=== PATIENT | male | born 1955 | race Caucasian/White ===

== ENCOUNTER 2023-09-18 06:04 | Emergency (ER) | payer MEDICARE, OTHER ==
[2023-09-18] MEDS ORDERED: levETIRAcetam IV 500 MG/5 ML VIAL IVP STA (06:13)
[2023-09-18] MEDS ORDERED: SODIUM CHLORIDE 0.9% 1,000 ML IV STA (06:13)
[2023-09-18] MEDS ORDERED: THIAMINE 100 MG/ML 2 ML VIAL IM STA (06:14)
[2023-09-18] MEDS ORDERED: LORazepam 2 MG/ML INJ IV PRN ×4 (06:14)
[2023-09-18] MEDS ORDERED: LORazepam 1 MG TAB PO PRN (06:14)
[2023-09-18 06:19] VITALS: RESP 18
--- NOTE | 2023-09-18 06:29 | ED ---
Seizure HPI - General Chief Complaint: Seizure Stated Complaint: seizure Time Seen by Provider: 09/18/23 06:06 Source: patient, EMS, RN notes reviewed Mode of arrival: EMS Limitations: no limitations - History of Present Illness Initial Comments: This is a 67-year-old male who presents to the emergency department for a seizure. Patient checked into [facility] yesterday for alcohol abuse. States that his most recent drink was a couple of days ago. States that he typically drinks a pint of liquor daily. Per EMS, [facility] staff heard a noise and snoring in his room. Staff went to check on him and found him having tonic- clonic seizure activity. They are unsure how long the seizure itself lasted, however the time involving the tonic-clonic activity and postictal period lasted approximately 15 minutes. When EMS arrived, he was alert and oriented x4. He does have a history of alcohol withdrawal seizures, most recently 1-2 years ago. Not currently on any antiepileptic medication. States that he feels mildly confused at this time, but otherwise denies any complaints. MD Complaint: seizure Description of Episode: loss of consciousness, tonic-clonic movement - Related Data Allergies Allergy/AdvReac Type Severity Reaction Status Date / Time No Known Allergies Allergy Verified 09/18/23 06:22 Review of Systems ROS Statement: Those systems with pertinent positive or pertinent negative responses have been documented in the HPI. ROS Other: All systems not noted in ROS Statement are negative. Past Medical History Past Medical History: Hypertension Additional Past Medical History / Comment(s): Withdrawl seizures History of Any Multi-Drug Resistant Organisms: None Reported Past Surgical History: No Surgical Hx Reported Past Psychological History: Depression Smoking Status: Never smoker Past Alcohol Use History: Abuse Past Drug Use History: None Reported General Exam Limitations: no limitations General appearance: alert, in no apparent distress Head exam: Present: atraumatic, normocephalic, normal inspection Eye exam: Present: normal appearance, PERRL, EOMI. Absent: scleral icterus, conjunctival injection, periorbital swelling Respiratory exam: Present: normal lung sounds bilaterally. Absent: respiratory distress, wheezes, rales, rhonchi, stridor Cardiovascular Exam: Present: regular rate, normal rhythm, normal heart sounds. Absent: systolic murmur, diastolic murmur, rubs, gallop, clicks Neurological exam: Present: alert, oriented X3, CN II-XII intact Psychiatric exam: Present: normal affect, normal mood Skin exam: Present: warm, dry, intact, normal color. Absent: rash Course Vital Signs 09/18/23 09/18/23 06:06 09:14 Temperature 98.0 F 98.6 F Pulse Rate 89 86 Respiratory 18 18 Rate Blood Pressure 141/87 118/83 O2 Sat by Pulse 94 L 95 Oximetry Medical Decision Making - Medical Decision Making This is a 67-year-old male who presents to the emergency department for a seizure. Was pt. sent in by a medical professional or institution? @ -[facility] Did you speak to anyone other than the patient for history? @ -EMS provided the information about how long the seizure lasted and that he was alert and oriented when they arrived. Did you review nursing and triage notes? @ -Yes, and I agree, it is accurate with regards to the patient's symptoms. Were old charts reviewed? @ -No Differential Diagnosis? @ -Differential Seizure: Recurrent seizure disorder, febrile seizure, alcohol withdrawal, stimulants, meningitis, encephalitis, intercranial hemorrhage, intracranial tumor, stroke, eclampsia, thyrotoxicosis, hypocalcemia, hyponatremia, hypernatremia, hypomagnesemia, psychogenic, this is not meant to be an all-inclusive list. EKG interpreted by me (3pts min.)? @ -EKG interpreted by me demonstrating the following: Sinus rhythm. Ventricular rate 81 bpm, HI interval 206 ms, QRS duration 123 ms, QTC 429 ms. X-rays interpreted by me (1pt min.)? @ -Not obtained CT interpreted by me (1pt min.)? @ -Not obtained U/S interpreted by me (1pt. min.)? @ -Not obtained What testing was considered but not performed? (CT, X-rays, U/S, labs)? Why? @ -None What meds were considered but not given? Why? @ -None Did you discuss the management of the patient with other professionals? @ -No Did you reconcile home meds? @ -No Was smoking cessation discussed for >3mins.? @ -No Was critical care preformed (if so, how long)? @ -No Were there social determinants of health that impacted care today? How? (Homelessness, low income, unemployed, alcoholism, drug addiction, transport ation, low edu. Level, literacy, decrease access to med. care, nursing home, rehab)? @ -Alcoholism, causing the withdrawal seizures and leading to his visit today. Was there de-escalation of care discussed even if they declined? (Discuss DNR or withdrawal of care, Hospice)? @ -No What co-morbidities impacted this encounter? (DM, HTN, Smoking, COPD, CAD, Cancer, CVA, Hep., AIDS, mental health diagnosis, sleep apnea, morbid obesity)? @ -Alcoholism Was patient admitted / discharged? @ -Discharged. On arrival, patient was no longer postictal. He felt slightly confused, however this resolved quickly and he was alert and oriented x4 during the duration of his visit. Lab work obtained demonstrating mild hypomagnesemia with a magnesium of 1.3 and was otherwise found to be unremarkable. 400 mg Magnesium oxide administered. Alcohol level negative. Seizure precautions were initiated. Patient given IV fluids and 1g of Keppra. His CIWA was 0 during the entirety of the visit. He was tolerating oral intake and exhibiting no signs of distress. Nursing staff discussed the case with [facility], who was agreeable to taking the patient back. Patient discharged back to [facility] in stable condition. Undiagnosed new problem with uncertain prognosis? @ -None Drug Therapy requiring intensive monitoring for toxicity (Heparin, Nitro, Insulin, Cardizem)? @ -None Were any procedures done? @ -None Diagnosis/symptom? @ -Alcohol withdrawal seizure, hypomagnesemia Acute, or Chronic, or Acute on Chronic? @ -Acute Uncomplicated (without systemic symptoms) or Complicated (systemic symptoms)? @ -Uncomplicated Side effects of treatment? @ -None Exacerbation, Progression, or Severe Exacerbation] @ -Not applicable Poses a threat to life or bodily function? @ -Not at this time Return precautions reviewed in depth, the patient is instructed to return to the emergency department with any new, worsening, or concerning symptoms. Patient verbalized understanding. This case was discussed in detail with the attending ED physician, Dr. Dugan. Presentation, findings, and treatment plan discussed in detail as well. - Lab Data Result diagrams: 09/18/23 06:18 09/18/23 06:18 Lab Results 09/18/23 09/18/23 09/18/23 Range/Units 06:18 06:18 06:18 WBC 3.9 (3.8-10.6) k/uL RBC 4.46 (4.30-5.90) m/uL Hgb 15.8 (13.0-17.5) gm/dL Hct 46.1 (39.0-53.0) % MCV 103.4 H (80.0-100.0) fL MCH 35.4 H (25.0-35.0) pg MCHC 34.2 (31.0-37.0) g/dL RDW 14.6 (11.5-15.5) % Plt Count 128 L (150-450) k/uL MPV 8.1 Neutrophils % 49 % Lymphocytes % 42 % Monocytes % 6 % Eosinophils % 1 % Basophils % 0 % Neutrophils # 1.9 (1.3-7.7) k/uL Lymphocytes # 1.6 (1.0-4.8) k/uL Monocytes # 0.2 (0-1.0) k/uL Eosinophils # 0.1 (0-0.7) k/uL Basophils # 0.0 (0-0.2) k/uL Macrocytosis Slight Sodium 139 (137-145) mmol/L Potassium 3.7 (3.5-5.1) mmol/L Chloride 101 (98-107) mmol/L Carbon Dioxide 25 (22-30) mmol/L Anion Gap 13 mmol/L BUN 6 L (9-20) mg/dL Creatinine 0.57 L (0.66-1.25) mg/dL Est GFR (CKD-EPI)AfAm >90 (>60 ml/min/1.73 sqM) Est GFR (CKD-EPI)NonAf >90 (>60 ml/min/1.73 sqM) Glucose 155 H (74-99) mg/dL Calcium 8.6 (8.4-10.2) mg/dL Magnesium 1.3 L (1.6-2.3) mg/dL Total Bilirubin 1.5 H (0.2-1.3) mg/dL AST 98 H (17-59) U/L ALT 36 (4-49) U/L Alkaline Phosphatase 122 (38-126) U/L Total Protein 7.2 (6.3-8.2) g/dL Albumin 3.7 (3.5-5.0) g/dL Urine Color Yellow Urine Appearance Clear (Clear) Urine pH 8.0 (5.0-8.0) Ur Specific Donalds 1.022 (1.001-1.035) Urine Protein 1+ H (Negative) Urine Glucose (UA) Negative (Negative) Urine Ketones Trace H (Negative) Urine Blood Negative (Negative) Urine Nitrite Negative (Negative) Urine Bilirubin Negative (Negative) Urine Urobilinogen 2.0 (<2.0) mg/dL Ur Leukocyte Esterase Negative (Negative) Urine RBC <1 (0-5) /hpf Urine WBC <1 (0-5) /hpf Ur Squamous Epith Cells <1 (0-4) /hpf Urine Mucus Occasional H (None) /hpf Urine Opiates Screen Not Detected (NotDetected) Ur Oxycodone Screen Not Detected (NotDetected) Urine Methadone Screen Not Detected (NotDetected) Ur Barbiturates Screen Not Detected (NotDetected) U Tricyclic Antidepress Not Detected (NotDetected) Ur Phencyclidine Scrn Not Detected (NotDetected) Ur Amphetamines Screen Not Detected (NotDetected) U Methamphetamines Scrn Not Detected (NotDetected) U Benzodiazepines Scrn Not Detected (NotDetected) Urine Cocaine Screen Not Detected (NotDetected) U Marijuana (THC) Screen Not Detected (NotDetected) Serum Alcohol <10 mg/dL Disposition Clinical Impression: Alcohol withdrawal seizure, Hypomagnesemia Disposition: HOME SELF-CARE Instructions (If sedation given, give patient instructions): Alcohol Withdrawal (ED) Additional Instructions: Return to the emergency department with any new, worsening, or concerning symptoms. Follow up with your primary care provider in 1-2 days. Is patient prescribed a controlled substance at d/c from ED?: No Referrals: Ho Pandey MD [Primary Care Provider] - 1-2 days
[2023-09-18 06:35] LABS: Basophils % (A) 0 %; Eosinophils # (A) 0.1 k/uL (0-0.7); Eosinophils % (A) 1 %; HCT 46.1 % (39.0-53.0); HGB 15.8 gm/dL (13.0-17.5); Lymphocytes # (A) 1.6 k/uL (1.0-4.8); Lymphocytes % (A) 42 %; MCH 35.4 pg (25.0-35.0); MCHC 34.2 g/dL (31.0-37.0); MCV 103.4 fL (80.0-100.0); Macrocytosis Slight; Mean Platelet Volume 8.1; Monocytes # (A) 0.2 k/uL (0-1.0); Monocytes % (A) 6 %; Neutrophils # (A) 1.9 k/uL (1.3-7.7); Neutrophils % (A) 49 %; Platelet Count 128 k/uL (150-450); RBC 4.46 m/uL (4.30-5.90); RDW 14.6 % (11.5-15.5); WBC 3.9 k/uL (3.8-10.6)
[2023-09-18 06:43] LABS: Appearance,Urine Clear (Clear); Bilirubin,Urine Negative (Negative); Blood,Urine Negative (Negative); Color,Urine Yellow; Glucose,Urine (UA) Negative (Negative); Ketones,Urine Trace (Negative); Leukocyte Esterase,Urine Negative (Negative); Mucus,Urine Occasional /hpf; Nitrite,Urine Negative (Negative); Protein,Urine 1+ (Negative); RBC,Urine <1 /hpf (0-5); Specific Gravity,Urine 1.022 (1.001-1.035); Squamous Epithelial Cell,Urine <1 /hpf (0-4); WBC,Urine <1 /hpf (0-5)
[2023-09-18 07:00] LABS: Amphetamine Screen,Urine Not Detected (NotDetected); Barbiturate Screen,Urine Not Detected (NotDetected); Benzodiazepines Screen,Urine Not Detected (NotDetected); Cocaine Screen,Urine Not Detected (NotDetected); Methadone Screen, Urine Not Detected (NotDetected); Opiate Screen,Urine Not Detected (NotDetected); Oxycodone Screen, Urine Not Detected (NotDetected); Phencyclidine Screen,Urine Not Detected (NotDetected); Tricyclic Antidepressant,Urine Not Detected (NotDetected); Urn Cannabinoid Scrn Not Detected (NotDetected)
[2023-09-18 07:17] LABS: ALT 36 U/L (4-49); AST 98 U/L (17-59); African American GFR (CKD) >90 (>60 ml/min/1.73 sqM); Albumin 3.7 g/dL (3.5-5.0); Alcohol <10 mg/dL; Alkaline Phosphatase 122 U/L (38-126); Anion Gap 13 mmol/L; Blood Urea Nitrogen 6 mg/dL (9-20); Calcium 8.6 mg/dL (8.4-10.2); Carbon Dioxide 25 mmol/L (22-30); Chloride 101 mmol/L (98-107); Glucose 155 mg/dL (74-99); Magnesium 1.3 mg/dL (1.6-2.3); Non-African American GFR(CKD) >90 (>60 ml/min/1.73 sqM); Potassium 3.7 mmol/L (3.5-5.1); Sodium 139 mmol/L (137-145); Total Bilirubin 1.5 mg/dL (0.2-1.3); Total Protein 7.2 g/dL (6.3-8.2)
[2023-09-18] MEDS ORDERED: MAGNESIUM OXIDE 400 MG TAB PO STA (08:17)
[2023-09-18 09:36] VITALS: BP 118/83; PULSE 86; TEMP 98.6
[2023-09-19] MEDS ORDERED: THIAMINE 100 MG TAB PO SCH (09:00)
== END 2023-09-18 09:24 | disposition home or self-care (01) ==
LOC: EC 06:04
DX: R56.9 Unspecified convulsions (principal); F10.239 Alcohol dependence with withdrawal, unspecified; E83.42 Hypomagnesemia; I10 Essential (primary) hypertension; Y90.0 Blood alcohol level of less than 20 mg/100 ml
CPT/HCPCS: 36415; 93005; 80053; 83735; 85025; 81001; 80306; 99285; 96374; 96372; 96361; G0480; J3411; J1953; 80320

== ENCOUNTER 2023-09-18 22:53 | Inpatient (IN) | payer MEDICARE, OTHER ==
--- NOTE | 2023-09-18 23:53 | ED ---
Altered Mental Status HPI - General Chief Complaint: Altered Mental Status Stated Complaint: increased confusion, Time Seen by Provider: 09/18/23 23:08 Source: patient, EMS Mode of arrival: EMS Limitations: altered mental status - History of Present Illness Initial Comments: 67-year-old male into the ED with a chief complaint of altered mental status. P atient presenting from [facility]. Per paperwork there, patient drinks 1 pint a day. His last use was yesterday morning at approximately 0800. Patient presented to [facility] for alcohol detox. Patient sent to this facility as patient is disoriented, incontinent, cannot do basic ADLs, and had a seizure yesterday and was unresponsive for approximately 20 minutes. At this time, patient is alert and oriented 1. Does not provide any meaningful history. - Related Data Home Medications Medication Instructions Recorded Confirmed Mirtazapine [Remeron] 15 mg PO HS 09/19/23 09/19/23 Pantoprazole [Protonix] 40 mg PO DAILY 09/19/23 09/19/23 lisinopriL [Zestril] 20 mg PO DIRECTED 09/19/23 09/19/23 Allergies Allergy/AdvReac Type Severity Reaction Status Date / Time No Known Allergies Allergy Verified 09/18/23 06:22 Review of Systems ROS Statement: Those systems with pertinent positive or pertinent negative responses have been documented in the HPI. ROS Other: All systems not noted in ROS Statement are negative. Past Medical History Past Medical History: Hypertension Additional Past Medical History / Comment(s): Withdrawl seizures History of Any Multi-Drug Resistant Organisms: None Reported Past Surgical History: No Surgical Hx Reported Past Psychological History: Depression Smoking Status: Never smoker Past Alcohol Use History: Abuse Past Drug Use History: None Reported General Exam Limitations: altered mental status General appearance: alert, in no apparent distress Head exam: Present: atraumatic, normocephalic Eye exam: Present: PERRL, EOMI ENT exam: Present: mucous membranes moist, other (Tongue Midline, uvula midline.) Respiratory exam: Present: normal lung sounds bilaterally Cardiovascular Exam: Present: regular rate, normal rhythm GI/Abdominal exam: Present: soft (No tenderness to palpation. No rebound guarding or rigidity.) Neurological exam: Present: alert (Oriented to person but not time or place.) Skin exam: Present: warm, dry Course Vital Signs 09/18/23 09/18/23 09/19/23 22:58 23:34 02:40 Temperature 98.8 F Pulse Rate 88 94 Respiratory 18 18 Rate Blood Pressure 139/80 132/78 130/83 O2 Sat by Pulse 99 97 96 Oximetry 09/19/23 09/19/23 09/19/23 03:10 04:10 06:33 Temperature Pulse Rate 69 72 73 Respiratory 16 18 16 Rate Blood Pressure 143/87 139/88 136/86 O2 Sat by Pulse 96 94 L 97 Oximetry Medical Decision Making - Medical Decision Making Was pt. sent in by a medical professional or institution (, PA, CULINARY DIRECTOR, urgent care, hospital, or care home...) When possible be specific @ -No Did you speak to anyone other than the patient for history (EMS, parent, family, police, friend...)? What history was obtained from this source @ -No Did you review nursing and triage notes (agree or disagree)? Why? @ -I reviewed and agree with nursing and triage notes Were old charts reviewed (outside hosp., previous admission, EMS record, old EKG, old radiological studies, urgent care reports/EKG's, care home records)? Report findings @ -No old charts were reviewed Differential Diagnosis (chest pain, altered mental status, abdominal pain women, abdominal pain men, vaginal bleeding, weakness, fever, dyspnea, syncope, headache, dizziness, GI bleed, back pain, seizure, CVA, palpatations, mental health, musculoskeletal)? @ -Differential Altered Mental Status: Hypoglycemia, DKA, hypercapnia, ETOH, overdose, CO poisoning, trauma, myxedema coma, HTN encephalopathy, infection, encephalitis, psychosis, intercranial hemorrhage, hepatic encephalopathy, meningitis, CVA, this is not meant to be an all-inclusive list EKG interpreted by me (3pts min.). @ -EKG interpreted me showing a sinus rhythm with first-degree AV block with FL interval of 247 ms. QRS 111. QT/QTC 388/422. No acute ST or T-wave changes. X-rays interpreted by me (1pt min.). @ -Chest x-ray interpreted by me showed no evidence of acute process. CT interpreted by me (1pt min.). @ -CT brain interpreted by me showing no evidence of acute process. U/S interpreted by me (1pt. min.). @ -None done What testing was considered but not performed or refused? (CT, X-rays, U/S, labs)? Why? @ -None What meds were considered but not given or refused? Why? @ -None Did you discuss the management of the patient with other professionals (professionals i.e. , PA, CULINARY DIRECTOR, lab, RT, psych nurse, social worker assistant, channel partners, teacher, state highway police officer, medical case worker)? Give summary @ -No Was smoking cessation discussed for >3mins.? @ -No Was critical care preformed (if so, how long)? @ -No Were there social determinants of health that impacted care today? How? (Homelessness, low income, unemployed, alcoholism, drug addiction, transportation, low edu. Level, literacy, decrease access to med. care, skilled nursing, rehab)? @ -No Was there de-escalation of care discussed even if they declined (Discuss DNR or withdrawal of care, Hospice)? DNR status @ -No What co-morbidities impacted this encounter? (DM, HTN, Smoking, COPD, CAD, Cancer, CVA, ARF, Chemo, Hep., AIDS, mental health diagnosis, sleep apnea, morbid obesity)? @ -None Was patient admitted / discharged? Hospital course, mention meds given and route, prescriptions, significant lab abnormalities, going to OR and other pertinent info. @ -Admission 67-year-old male presenting from [facility] secondary to altered mental status. According to paperwork from [facility] last drink was yesterday approximately 8 AM. Patient drinks approximately a pint a day. It was sent to this facility secondary to altered mental status. Noted that the patient had a seizure while their facility and was also very disoriented.) Examination here patient only alert to himself and does report seeing his mother in the room when she is not actually there. Laboratory studies reviewed. Lab at this time largely unremarkable. CT brain shows no evidence of acute process. Symptoms at this time likely secondary to delirium tremens. Patient will be admitted secondary to this. Undiagnosed new problem with uncertain prognosis? @ -No Drug Therapy requiring intensive monitoring for toxicity (Heparin, Nitro, Insulin, Cardizem)? @ -No Were any procedures done? @ -No Diagnosis/symptom? @ -Alcohol withdrawal Acute, or Chronic, or Acute on Chronic? @ -Acute Uncomplicated (without systemic symptoms) or Complicated (systemic symptoms)? @ -Complicated Side effects of treatment? @ -No Exacerbation, Progression, or Severe Exacerbation? @ -No Poses a threat to life or bodily function? How? (Chest pain, [place], [place], pneumonia, PE, COPD, DKA, ARF, appy, cholecystitis, CVA, Diverticulitis, Homicidal, Suicidal, threat to staff... and all critical care pts) @ -No - Lab Data Result diagrams: 09/19/23 01:50 09/18/23 23:48 Lab Results 09/18/23 09/19/23 09/19/23 Range/Units 23:48 00:57 00:58 WBC (3.8-10.6) k/uL RBC (4.30-5.90) m/uL Hgb (13.0-17.5) gm/dL Hct (39.0-53.0) % MCV (80.0-100.0) fL MCH (25.0-35.0) pg MCHC (31.0-37.0) g/dL RDW (11.5-15.5) % Plt Count (150-450) k/uL MPV Neutrophils % % Lymphocytes % % Monocytes % % Eosinophils % % Basophils % % Neutrophils # (1.3-7.7) k/uL Lymphocytes # (1.0-4.8) k/uL Monocytes # (0-1.0) k/uL Eosinophils # (0-0.7) k/uL Basophils # (0-0.2) k/uL Macrocytosis PT 11.9 (10.0-12.5) sec INR 1.1 (<1.2) APTT 23.9 (22.0-30.0) sec Sodium 134 L (137-145) mmol/L Potassium 3.4 L (3.5-5.1) mmol/L Chloride 101 (98-107) mmol/L Carbon Dioxide 22 (22-30) mmol/L Anion Gap 11 mmol/L BUN 9 (9-20) mg/dL Creatinine 0.56 L (0.66-1.25) mg/dL Est GFR (CKD-EPI)AfAm >90 (>60 ml/min/1.73 sqM) Est GFR (CKD-EPI)NonAf >90 (>60 ml/min/1.73 sqM) Glucose 108 H (74-99) mg/dL POC Glucose (mg/dL) 110 (70-110) mg/dL POC Glu Teenage Babysitter ID Kayla Ag Plasma Lactic Acid Amadou (0.7-2.0) mmol/L Calcium 8.3 L (8.4-10.2) mg/dL Total Bilirubin 1.6 H (0.2-1.3) mg/dL AST 63 H (17-59) U/L ALT 29 (4-49) U/L Alkaline Phosphatase 98 (38-126) U/L Ammonia (<30) umol/L Total Protein 6.6 (6.3-8.2) g/dL Albumin 3.4 L (3.5-5.0) g/dL Serum Alcohol <10 mg/dL 09/19/23 09/19/23 Range/Units 00:58 01:50 WBC 5.7 (3.8-10.6) k/uL RBC 3.95 L (4.30-5.90) m/uL Hgb 14.4 (13.0-17.5) gm/dL Hct 40.9 (39.0-53.0) % MCV 103.5 H (80.0-100.0) fL MCH 36.4 H (25.0-35.0) pg MCHC 35.2 (31.0-37.0) g/dL RDW 14.6 (11.5-15.5) % Plt Count 112 L (150-450) k/uL MPV 8.9 Neutrophils % 63 % Lymphocytes % 26 % Monocytes % 6 % Eosinophils % 1 % Basophils % 0 % Neutrophils # 3.6 (1.3-7.7) k/uL Lymphocytes # 1.5 (1.0-4.8) k/uL Monocytes # 0.4 (0-1.0) k/uL Eosinophils # 0.1 (0-0.7) k/uL Basophils # 0.0 (0-0.2) k/uL Macrocytosis Slight PT (10.0-12.5) sec INR (<1.2) APTT (22.0-30.0) sec Sodium (137-145) mmol/L Potassium (3.5-5.1) mmol/L Chloride (98-107) mmol/L Carbon Dioxide (22-30) mmol/L Anion Gap mmol/L BUN (9-20) mg/dL Creatinine (0.66-1.25) mg/dL Est GFR (CKD-EPI)AfAm (>60 ml/min/1.73 sqM) Est GFR (CKD-EPI)NonAf (>60 ml/min/1.73 sqM) Glucose (74-99) mg/dL POC Glucose (mg/dL) (70-110) mg/dL POC Glu Teenage Babysitter ID Plasma Lactic Acid Amadou 1.2 (0.7-2.0) mmol/L Calcium (8.4-10.2) mg/dL Total Bilirubin (0.2-1.3) mg/dL AST (17-59) U/L ALT (4-49) U/L Alkaline Phosphatase (38-126) U/L Ammonia 13 (<30) umol/L Total Protein (6.3-8.2) g/dL Albumin (3.5-5.0) g/dL Serum Alcohol mg/dL Disposition Clinical Impression: AMS (altered mental status), Alcohol withdrawal Disposition: ADMITTED IP TO THIS [facility] Condition: Good
[2023-09-19 00:03] LABS: ALT 29 U/L (4-49); African American GFR (CKD) >90 (>60 ml/min/1.73 sqM); Albumin 3.4 g/dL (3.5-5.0); Alcohol <10 mg/dL; Anion Gap 11 mmol/L; Blood Urea Nitrogen 9 mg/dL (9-20); Calcium 8.3 mg/dL (8.4-10.2); Carbon Dioxide 22 mmol/L (22-30); Chloride 101 mmol/L (98-107); Glucose 108 mg/dL (74-99); Non-African American GFR(CKD) >90 (>60 ml/min/1.73 sqM); Sodium 134 mmol/L (137-145); Total Bilirubin 1.6 mg/dL (0.2-1.3); Total Protein 6.6 g/dL (6.3-8.2)
[2023-09-19 00:08] LABS: AST 63 U/L (17-59); Alkaline Phosphatase 98 U/L (38-126); Potassium 3.4 mmol/L (3.5-5.1)
--- NOTE | 2023-09-19 00:37 | XR ---
EXAMINATION TYPE: XR chest 2V DATE OF EXAM: 09/19/2023 COMPARISON: NONE HISTORY: Altered mental status. TECHNIQUE: Frontal and lateral views of the chest are obtained. FINDINGS: Cardiomegaly and low lung volumes are present. No suspicious focal airspace opacity, pleur al effusion, or pneumothorax seen. There is scoliotic curvature and/or positioning noted. IMPRESSION: Cardiomegaly with low lung volumes.
[2023-09-19] MEDS ORDERED: LORazepam 2 MG/ML INJ IV PRN ×2 (00:57)
[2023-09-19] MEDS ORDERED: LORazepam 1 MG TAB PO PRN ×3 (00:57)
[2023-09-19] MEDS ORDERED: LORazepam 0.5 MG TAB PO PRN (00:57)
[2023-09-19 00:59] LABS: Glucose,Whole Blood 110 mg/dL (70-110)
[2023-09-19] MEDS: SODIUM CHLORIDE 0.9% 1,000 ML IV STA ×2 (01:03→01:04)
--- NOTE | 2023-09-19 01:29 | CT ---
EXAMINATION TYPE: CT brain wo con DATE OF EXAM: 09/19/2023 HISTORY: AMS CT DLP: 1285.4 mGycm. Automated Exposure Control for Dose Reduction was Utilized. TECHNIQUE: CT scan of the head is performed without contrast. COMPARISON: None. FINDINGS: There is no acute intracranial hemorrhage or midline shift identified. There is mild diff use ventricular and sulcal prominence consistent with diffuse age-related cerebral atrophy. There is mild low-attenuation in the periventricular white matter consistent with chronic small vessel ischem ic change. Mild mucosal thickening right maxillary sinus. Globes are intact bilaterally. IMPRESSION: No acute intracranial hemorrhage or midline shift. There is mild diffuse age-related ce rebral atrophy and chronic small vessel ischemic change noted.
[2023-09-19 01:30] LABS: INR 1.1 (<1.2); Partial Thromboplastin Time 23.9 sec (22.0-30.0); Prothrombin Time 11.9 sec (10.0-12.5)
[2023-09-19 01:33] LABS: Lactic Acid, Venous 1.2 mmol/L (0.7-2.0)
[2023-09-19 01:58] LABS: Basophils % (A) 0 %; Eosinophils # (A) 0.1 k/uL (0-0.7); Eosinophils % (A) 1 %; HCT 40.9 % (39.0-53.0); HGB 14.4 gm/dL (13.0-17.5); Lymphocytes # (A) 1.5 k/uL (1.0-4.8); Lymphocytes % (A) 26 %; MCH 36.4 pg (25.0-35.0); MCHC 35.2 g/dL (31.0-37.0); MCV 103.5 fL (80.0-100.0); Macrocytosis Slight; Mean Platelet Volume 8.9; Monocytes # (A) 0.4 k/uL (0-1.0); Monocytes % (A) 6 %; Neutrophils # (A) 3.6 k/uL (1.3-7.7); Neutrophils % (A) 63 %; Platelet Count 112 k/uL (150-450); RBC 3.95 m/uL (4.30-5.90); RDW 14.6 % (11.5-15.5); WBC 5.7 k/uL (3.8-10.6)
[2023-09-19] MEDS: LORazepam 2 MG/ML INJ IV PRN (01:59)
[2023-09-19] MEDS ORDERED: ONDANSETRON 4 MG/2 ML VIAL IVP PRN (02:33)
[2023-09-19] MEDS ORDERED: NALOXONE 0.4 MG/ML 1 ML VIAL IV PRN (02:33)
[2023-09-19] MEDS: MULTIVITAMINS, THERA 1 EACH TAB PO STA (02:39)
[2023-09-19] MEDS: THIAMINE 100 MG/ML 2 ML VIAL IM STA (02:42)
[2023-09-19] MEDS: LORazepam 1 MG TAB PO PRN (11:37)
[2023-09-19] MEDS: HALOPERIDOL LACTATE 5 MG/ML 1 ML VIAL IM PRN (14:53)
[2023-09-19] MEDS ORDERED: TEMAZEPAM 15 MG CAP PO PRN (14:56)
[2023-09-19] MEDS ORDERED: HYDROcodone/APAP 5-325MG 1 EACH TAB PO PRN (14:57)
[2023-09-19] MEDS ORDERED: ACETAMINOPHEN TAB 500 MG TAB PO PRN (14:57)
[2023-09-19] MEDS: chlordiazePOXIDE 25 MG CAP PO SCH (17:25)
[2023-09-19] MEDS: THIAMINE 100 MG TAB PO SCH (17:25)
[2023-09-19] MEDS: MIRTAZAPINE 15 MG TAB PO SCH (22:11)
--- NOTE | 2023-09-20 00:14 | HP ---
HISTORY AND PHYSICAL CHIEF COMPLAINT: Alcohol withdrawals and delirium, confusion. HISTORY OF PRESENT ILLNESS: This is a 67-year-old gentleman with a past medical history of hypertension, history of significant alcohol history, drinking up to 1 pint of alcohol a day, was in [place]. The patient has some confusion, and hallucinations, and the patient also had tremors. The patient was sent to [facility] and admitted for further evaluation and treatment. There is no history of any fever, rigors, or chills at this time. The bilirubin is slightly elevated including alcoholic hepatitis. Otherwise, the blood pressure is maintained, but the patient is tachycardic. PAST MEDICAL HISTORY: Hypertension. Rest of the history and rest of the chart is also reviewed. HOME MEDICATIONS: Reviewed include lisinopril. Dose and rest of medications noted. ALLERGIES: None. FAMILY HISTORY: No history of heart disease or strokes in the family. SOCIAL HISTORY: Significant alcohol abuse. REVIEW OF SYSTEMS: Could not be taken. The patient is confused. PHYSICAL EXAMINATION: VITAL SIGNS: Pulse 73, blood pressure 136/83, respirations 16. HEENT: Conjunctivae normal. NECK: No jugular venous distention. CARDIOVASCULAR: S1, S2. RESPIRATIONS: Breath sounds diminished at the bases. No crackles. ABDOMEN: Soft, nontender. LEGS: No edema. NERVOUS SYSTEM: Nonfocal. SKIN: No ulcer, rash, bleeding. JOINTS: No active deforming arthropathy. LABORATORY DATA: Reviewed. ASSESSMENT: 1. Acute alcohol withdrawal and early delirium tremens. 2. Hyponatremia. 3. Hypokalemia. 4. Alcoholic hepatitis. 5. History of hypertension. RECOMMENDATIONS AND DISCUSSION: This is a 67-year-old gentleman, who presented with multiple complex medical issues. I would recommend to continue with CIWA protocol. Add Librium, Haldol p.r.n. Otherwise, monitor blood sugar, blood pressure closely. Resume the home medications, vitamins. Prognosis guarded. The patient will require outpatient alcohol rehab and continue to monitor. Guarded prognosis. Further recommendations to follow. See orders for further details. MMODL / IJN: [id number] /
[2023-09-20] MEDS: PANTOPRAZOLE 40 MG TABLET PO SCH (08:36)
[2023-09-20 08:51] VITALS: BP 163/89; PULSE 68; RESP 20; TEMP 97.9
[2023-09-20 10:54] LABS: Basophils % (A) 0 %; Eosinophils # (A) 0.1 k/uL (0-0.7); Eosinophils % (A) 2 %; HCT 46.8 % (39.0-53.0); HGB 16.2 gm/dL (13.0-17.5); Lymphocytes # (A) 0.8 k/uL (1.0-4.8); Lymphocytes % (A) 21 %; MCH 36.3 pg (25.0-35.0); MCHC 34.6 g/dL (31.0-37.0); MCV 104.9 fL (80.0-100.0); Macrocytosis Moderate; Mean Platelet Volume 9.9; Monocytes # (A) 0.3 k/uL (0-1.0); Monocytes % (A) 7 %; Neutrophils # (A) 2.7 k/uL (1.3-7.7); Neutrophils % (A) 68 %; RBC 4.46 m/uL (4.30-5.90); RDW 14.4 % (11.5-15.5)
[2023-09-20 12:50] LABS: Platelet Count 86 k/uL (150-450)
[2023-09-20] MEDS: FOLIC ACID 1 MG TAB PO SCH (14:05)
[2023-09-20] MEDS: MULTIVITAMINS, THERA 1 EACH TAB PO SCH (14:06)
[2023-09-20 16:15] LABS: ALT 25 U/L (10-49); AST 56 U/L (14-35); Albumin 3.4 g/dL (3.8-4.9); Albumin/Globulin Ratio 1.26 Ratio (1.60-3.17); Alkaline Phosphatase 95 U/L (41-126); BUN/Creat Ratio 6.57 Ratio (12.00-20.00); Blood Urea Nitrogen 4.6 mg/dL (9.0-27.0); Calcium 8.8 mg/dL (8.7-10.3); Chloride 105 mmol/L (96-109); Globulin 2.7 g/dL (1.6-3.3); Glucose 106 mg/dL (70-110); Potassium 3.5 mmol/L (3.5-5.5); Sodium 142 mmol/L (135-145); Total Bilirubin 1.2 mg/dL (0.3-1.2); Total Protein 6.1 g/dL (6.2-8.2)
--- NOTE | 2023-09-25 11:52 | P.DS ---
Providers Date of admission: 09/19/23 13:44 Expected date of discharge: 09/20/23 Attending physician: Mart Hopkins Primary care physician: Stated None Hospital Course: Final diagnosis Acute alcohol withdrawal and early delirium tremens Hyponatremia hypokalemia Alcoholic hepatitis history of hypertension Obesity with a BMI of 30.4 GI prophylaxis DVT prophylaxis Full code Discharge disposition Patient is being discharged in a stable condition with guarded prognosis to [facility] for continued alcohol rehab. Patient will follow-up with Dr. Valdez in the outpatient setting upon discharge. Patient is to continue with Librium taper on discharge. Total time taken is greater than 35 minutes. Hospital course This is a 67-year-old male who was recently admitted with acute alcohol intoxication and having some hallucinations and confusion withdrawal. Patient was placed on CIWA protocol along with Librium taper and had electrolyte replacements and follow-up labs within normal limits and patient withdrawal symptoms have improved not requiring IV Ativan. Patient will continue on Librium taper on discharge. Patient plans on returning to [facility] for continued rehab. Patient given resources to follow-up with primary care provider in the outpatient setting. Patient reports to feeling improved and able to walk to the bathroom with no difficulties and would like to return to rehab. Currently no reports of chest pain, shortness of breath, or palpitations. Patient is afebrile. No reports of nausea or vomiting and patient is tolerating diet. Patient will be going to [facility] for continued alcohol rehab. Physical exam: Gen: This is a 67-year-old male who is awake, alert and oriented 3, well- developed, well-nourished, obese HEENT: Head is atraumatic, normocephalic. Pupils equal, round. Sclerae is anicte rd. NECK: Supple. No JVD. No lymphadenopathy. No thyromegaly. LUNGS: Clear to auscultation. No wheezes or rhonchi. No intercostal retractions. HEART: Regular rate and rhythm. No murmur. ABDOMEN: Soft. Obese. Bowel sounds are present. No masses. No tenderness. EXTREMITIES: No pedal edema. No calf tenderness. NEUROLOGICAL: Patient is awake, alert and oriented x3. Cranial nerves 2 through 12 are grossly intact. Please refer to medication reconciliation sheet for a list of medications. The impression and plan of care has been dictated by Gosia Rae, Nurse Practitioner as directed. Dr. Sandeep MD I have performed a history and examination and MDM of this patient, discussed the same with the dictator, and agree with the dictator's assessment and plan as written ,documented as a scribe. Based on total visit time, I have performed more than 50% of the visit. Patient Condition at Discharge: Good Plan - Discharge Summary New Discharge Prescriptions: New chlordiazePOXIDE HCl [Librium] 25 mg PO TID 3 Days #6 capsule Multivitamins, Thera [Multivitamin] 1 tab PO DAILY #30 tablet Thiamine [Vitamin B-1] 100 mg PO DAILY #30 tablet Folic Acid 1 mg PO DAILY #30 tablet Continue Pantoprazole [Protonix] 40 mg PO DAILY Mirtazapine [Remeron] 15 mg PO HS lisinopriL [Zestril] 20 mg PO DAILY Discharge Medication List Mirtazapine [Remeron] 15 mg PO HS 09/19/23 [History] Pantoprazole [Protonix] 40 mg PO DAILY 09/19/23 [History] lisinopriL [Zestril] 20 mg PO DAILY 09/19/23 [History] Folic Acid 1 mg PO DAILY #30 tablet 09/20/23 [Rx] Multivitamins, Thera [Multivitamin] 1 tab PO DAILY #30 tablet 09/20/23 [Rx] Thiamine [Vitamin B-1] 100 mg PO DAILY #30 tablet 09/20/23 [Rx] chlordiazePOXIDE HCl [Librium] 25 mg PO TID 3 Days #6 capsule 09/20/23 [Rx] Follow up Appointment(s)/Referral(s): Kyle Valdez MD [REFERRING] - 1 Week (Not a patient if you want to become new patient Please call to schedule) Patient Instructions/Handouts: Alcohol Intoxication (DC), Alcohol Withdrawal (DC) Activity/Diet/Wound Care/Special Instructions: Patient is returning to [facility] Activity as tolerated Follow-up with primary care provider on discharge Follow-up and establish Continue Librium taper and avoid all alcohol while taking Continue to avoid all alcohol use and exposure Discharge Disposition: OTHER INSTITUTION NOT DEFINED
== END 2023-09-20 15:15 | DRG 897 ==
LOC: EC 22:53 → 4SSUR 09-19 13:44
PROVIDERS: ADMIT Hospitalist; ATTEND Hospitalist
DX: F10.231 Alcohol dependence with withdrawal delirium (principal); E87.1 Hypo-osmolality and hyponatremia; K70.10 Alcoholic hepatitis without ascites; I10 Essential (primary) hypertension; E87.6 Hypokalemia; I44.0 Atrioventricular block, first degree; Z79.899 Other long term (current) drug therapy; E66.9 Obesity, unspecified; Z68.30 Body mass index [BMI] 30.0-30.9, adult
CPT/HCPCS: 36415; 70450; 71046; 80053; 80320; 82140; 83605; 85025; 85610; 85730; 93005; 96361; 96372; 96374; 99285